=== PATIENT | male | born 1960 | race African-American/Black ===

== ENCOUNTER 2019-07-14 21:00 | Emergency (ER) | payer OTHER, MEDICAID ==
[~2019-07-14] VITALS: Ht 177.8 cm; Wt 75.0 kg
[~2019-07-14 21:00] MED LIST: ALBU18HF2 IH; ALLO300T2 PO; CARB200T PO; DEXTL PO; FERR-63 PO; Folic Acid PO; Multivitamins,Ther W-Minerals PO; Thiamine Hcl PO
[2019-07-14] MEDS ORDERED: LEVETIRACETAM 500MG PREMIX 100 ML IV ONE (22:00)
[2019-07-14 23:00] LABS: BASOPHILS % 0.5 % (0.0-2.0); EOSINOPHILS % 0.5 % (0.0-5.0); HEMATOCRIT. 33.9 % (42.0-52.0); HEMOGLOBIN. 11.4 g/dL (14.0-18.0); LYMPHOCYTES % 14.5 % (20.0-50.0); MEAN CORPUSCULAR HEMOGLOBIN 34.9 pg (28.0-32.0); MEAN CORPUSCULAR VOLUME 104.1 fL (80.0-94.0); MEAN PLATELET VOLUME 8.3 fl (7.4-10.4); MONOCYTES % 12.8 % (2.0-8.0); NEUTROPHILS % 71.7 % (40.0-76.0); PLATELET 139 x1000/uL (130-400); RED BLOOD CELL COUNT 3.26 mill/uL (4.7-6.1); RED CELL DISTRIBUTION WIDTH 18.6 % (11.6-14.6)
[2019-07-14 23:07] LABS: CHLORIDE 97 mEq/L (98-107)
[2019-07-14 23:15] LABS: CARBAMAZEPINE < 0.5 ug/mL (4-12); PHENOBARBITAL < 2.1 ug/mL (15.0-40.0)
[2019-07-15 04:10] VITALS: BP 117/72
== END 2019-07-15 05:13 | disposition home or self-care (01) ==
LOC: ER 21:00
DX: G40.909 Epilepsy, unspecified, not intractable, without status epilepticus (principal); F12.10 Cannabis abuse, uncomplicated; Z79.899 Other long term (current) drug therapy
CPT/HCPCS: 36415; 80053; 80156; 80165; 80184; 80185; 82962; 85025; 96365; 99283; J1953

== ENCOUNTER 2019-12-10 14:22 | Inpatient (IN) | payer MEDICAID, OTHER ==
[~2019-12-10] VITALS: Ht 177.8 cm; Wt 67.1 kg
[2019-12-10] MEDS ORDERED: SODIUM CHLORIDE 0.9% 1,000 ML IV ONE (14:47)
[2019-12-10 15:43] LABS: HEMATOCRIT. 33.8 % (42.0-52.0); HEMOGLOBIN. 11.4 g/dL (14.0-18.0); MEAN CORPUSCULAR HEMOGLOBIN 32.7 pg (28.0-32.0); MEAN CORPUSCULAR VOLUME 97.6 fL (80.0-94.0); MEAN PLATELET VOLUME 9.1 fl (7.4-10.4); PLATELET 78 x1000/uL (130-400); RED BLOOD CELL COUNT 3.47 mill/uL (4.7-6.1); RED CELL DISTRIBUTION WIDTH 24.6 % (11.6-14.6)
[2019-12-10 15:47] LABS: INR 1.2
[2019-12-10 15:48] LABS: CHLORIDE 96 mEq/L (98-107)
[2019-12-10 15:53] LABS: ETHANOL BLOOD < 10 mg/dL
[2019-12-10 15:58] LABS: PHENOBARBITAL 3.4 ug/mL (15.0-40.0)
[2019-12-10 16:04] LABS: CARBAMAZEPINE < 0.5 ug/mL (4-12)
[2019-12-10 16:08] LABS: CREATINE KINASE 363 IU/L (39-308)
[2019-12-10] MEDS ORDERED: PHENYTOIN SODIUM 1,000 MG in SODIUM CHLORIDE 0.9% 100 ML IV ONE (16:30)
[2019-12-10 16:37] LABS: VALPROIC ACID <3.0 ug/mL ug/mL (50-100)
[2019-12-10 16:42] LABS: CLARITY URINE TURBID (CLEAR); COLOR URINE DARK YELLOW (YELLOW); KETONES URINE TRACE (NEGATIVE); LEUKOCYTE ESTERASE URINE TRACE (NEGATIVE); NITRITE URINE NEGATIVE (NEGATIVE); OCCULT BLOOD URINE 2+ (NEGATIVE); PROTEIN URINE 3+ (NEGATIVE); SPECIFIC GRAVITY URINE 1.025 (1.005-1.030)
[2019-12-10 16:49] LABS: NUCLEATED RED BLOOD CELLS 4 /100 WBC; PLATELET ESTIMATE DECREASED
[2019-12-10 17:24] LABS: *BARBITURATES SCREEN URINE NEGATIVE (NEGATIVE); *BENZODIAZEPINES SCREEN URINE NEGATIVE (NEGATIVE); *COCAINE SCREEN URINE NEGATIVE (NEGATIVE); CANNABINOID URINE SCREEN PRESUMTIVE POSITIVE (NEGATIVE); METHADONE URINE SCREEN NEGATIVE (NEGATIVE)
[2019-12-10 17:25] LABS: OPIATES URINE SCREEN NEGATIVE (NEGATIVE); PHENCYCLIDINE URINE SCREEN NEGATIVE (NEGATIVE)
[2019-12-10 17:27] LABS: *AMPHETAMINES SCREEN URINE NEGATIVE (NEGATIVE)
[2019-12-10] MEDS ORDERED: CEFTRIAXONE 1 G PREMIX 50 ML IV ONE (18:30)
[2019-12-11] MEDS: PHENYTOIN SODIUM 100MG/2ML VIAL IV SCH ×3 (05:50→22:33)
[2019-12-11 05:57] LABS: CHLORIDE 101 mEq/L (98-107)
[2019-12-11 05:58] LABS: BASOPHILS % 0.7 % (0.0-2.0); EOSINOPHILS % 0.6 % (0.0-5.0); HEMATOCRIT. 29.2 % (42.0-52.0); HEMOGLOBIN. 9.8 g/dL (14.0-18.0); LYMPHOCYTES % 26.3 % (20.0-50.0); MEAN CORPUSCULAR HEMOGLOBIN 32.9 pg (28.0-32.0); MEAN CORPUSCULAR VOLUME 97.7 fL (80.0-94.0); MEAN PLATELET VOLUME 8.2 fl (7.4-10.4); MONOCYTES % 12.7 % (2.0-8.0); NEUTROPHILS % 59.7 % (40.0-76.0); PLATELET 61 x1000/uL (130-400); RED BLOOD CELL COUNT 2.98 mill/uL (4.7-6.1)
[2019-12-11 06:59] LABS: PLATELET ESTIMATE ND
[2019-12-11 08:00] VITALS: BP 171/96
[2019-12-11 08:30] VITALS: BP 171/96
[2019-12-11] MEDS ORDERED: PHEN100C4 PO (09:46)
[2019-12-11] MEDS ORDERED: ACETAMINOPHEN 325MG TABLET PO PRN (10:15)
[2019-12-11] MEDS: AMLODIPINE 10MG TABLET PO SCH (11:18)
[2019-12-11 12:00] VITALS: BP 144/94
[2019-12-11] MEDS ORDERED: POTASSIUM CHLORIDE 20MEQ TABLET SR PO SCH (13:15)
[2019-12-11] MEDS: SODIUM CHLORIDE 0.45% 1,000 ML IV SCH (13:28)
[2019-12-11 16:00] VITALS: BP 125/89
[2019-12-11 20:00] VITALS: BP 110/70
[2019-12-12] VITALS: BP 136/88
[2019-12-12] MEDS: SODIUM CHLORIDE 0.45% 1,000 ML IV SCH ×2 (01:40→18:44)
[2019-12-12 04:00] VITALS: BP 132/89
[2019-12-12] MEDS: PHENYTOIN SODIUM 100MG/2ML VIAL IV SCH ×3 (06:04→21:34)
[2019-12-12 08:00] VITALS: BP 134/88
[2019-12-12] MEDS: AMLODIPINE 10MG TABLET PO SCH (08:40)
[2019-12-12 12:00] VITALS: BP 119/82
[2019-12-12] MEDS ORDERED: AMLO10TA80 PO (13:13)
[2019-12-12] MEDS ORDERED: PHEN100C4 MT (13:13)
[2019-12-12 15:21] LABS: BASOPHILS % 0.6 % (0.0-2.0); EOSINOPHILS % 0.7 % (0.0-5.0); HEMATOCRIT. 31.3 % (42.0-52.0); HEMOGLOBIN. 10.4 g/dL (14.0-18.0); LYMPHOCYTES % 22.7 % (20.0-50.0); MEAN CORPUSCULAR VOLUME 99.5 fL (80.0-94.0); MEAN PLATELET VOLUME 8.7 fl (7.4-10.4); MONOCYTES % 14.2 % (2.0-8.0); NEUTROPHILS % 61.8 % (40.0-76.0); PLATELET 78 x1000/uL (130-400); RED BLOOD CELL COUNT 3.15 mill/uL (4.7-6.1); RED CELL DISTRIBUTION WIDTH 25.8 % (11.6-14.6)
[2019-12-12 15:27] LABS: CHLORIDE 105 mEq/L (98-107)
[2019-12-12 16:00] VITALS: BP 119/77
[2019-12-12 16:18] LABS: PLATELET ESTIMATE DECREASED
[2019-12-12 20:00] VITALS: BP 135/92
[2019-12-13] VITALS: BP 131/86
[2019-12-13 04:00] VITALS: BP 133/94
[2019-12-13] MEDS: PHENYTOIN SODIUM 100MG/2ML VIAL IV SCH ×2 (05:33→13:59)
[2019-12-13 08:00] VITALS: BP 153/108
[2019-12-13] MEDS: AMLODIPINE 10MG TABLET PO SCH (08:40)
[2019-12-13 12:00] VITALS: BP 110/76
[2019-12-13] MEDS: SODIUM CHLORIDE 0.45% 1,000 ML IV SCH (13:59)
[2019-12-13 16:00] VITALS: BP 111/71
[2019-12-13 18:03] VITALS: BP 111/71
== END 2019-12-13 21:06 | disposition home or self-care (01) | DRG 53 ==
LOC: EDBEDREQ 15:04 → ER 18:10 → 5WST 22:25 → EDBEDREQTM 22:35 → EDBEDREQ 22:35 → ENRESERV 12-11 07:49
PROVIDERS: ADMIT Family Medicine; ATTEND Family Medicine
DX: G40.909 Epilepsy, unspecified, not intractable, without status epilepticus (principal); D64.9 Anemia, unspecified; S00.83XA Contusion of other part of head, initial encounter; F12.90 Cannabis use, unspecified, uncomplicated; F17.210 Nicotine dependence, cigarettes, uncomplicated; W18.39XA Other fall on same level, initial encounter; Z91.19 Patient's noncompliance with other medical treatment and regimen; Z91.81 History of falling; Y93.89 Activity, other specified; Y92.89 Other specified places as the place of occurrence of the external cause; Y99.8 Other external cause status; Z79.899 Other long term (current) drug therapy
CPT/HCPCS: 36415; 71045; 80053; 80156; 80165; 80184; 80185; 80305; 80320; 81003; 82550; 83735; 83880; 84484; 85025; 93005; 96365; 96368; 96375; 97162; 99291; J0696; J1165; J7030; J7050; G0480